=== PATIENT | male | born 1960 | race Caucasian/White ===

== ENCOUNTER 2017-05-07 15:15 | Outpatient (CLI) | payer MEDICARE, MEDICAID ==
[~2017-05-07 15:15] MED LIST: PANT-47 PO
== END 2017-05-07 23:59 | disposition home or self-care (01) ==
LOC: RAD 15:15
PROVIDERS: ATTEND Surgery
DX: R10.9 Unspecified abdominal pain (principal)
CPT/HCPCS: 76705

== ENCOUNTER 2024-10-01 11:05 | Emergency (ER) | payer MEDICAID, MEDICARE ==
[~2024-10-01] VITALS: Ht 182.9 cm; Wt 97.1 kg
[2024-10-01 11:06] VITALS: BP 134/77; PULSE 83; RESP 16; TEMP 98.3; O2SAT 97
--- NOTE | 2024-10-01 11:31 | Physician Documentation ---
History of Present Illness ~ Chief Complaint: Leg Laceration Stated Complaint: LEG LAC WITH CHAINSAW Time Seen by MD: 14:34 Primary Medical Doctor: sammy 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 Laceration is to the left lateral knee bleeding currently controlled patient denies any inability or significant difficulty with ambulation at this time. Tetanus Within 5 Years: No Medication Reconciliation Allergies: Coded Allergies: acetaminophen (Verified Allergy, Intermediate, "i GO OUT", 10/01/24) hydrocodone (Verified Allergy, Intermediate, "i GO OUT", 10/01/24) Scheduled Pantoprazole Sodium (PROTONIX tablet), 1 TAB PO DAILY Past Medical History Past Medical History: Hernia Past Surgical History: orthopedic surgeries Alcohol Use: Occasionally Drug Use: marijuana Lives with: Spouse Lives In: Home Occupation: employed Review of Systems Constitutional: Denies: chills, fever, weakness Eyes: Denies: pain, blurred vision ENT: Denies: ear pain, nose pain, throat pain, mouth pain Respiratory: Denies: cough, shortness of breath Cardiovascular: Denies: chest pain, palpitations Gastrointestinal: Denies: abdominal pain, nausea, vomiting Genitourinary: Denies: burning, dysuria Male Genitalia: Denies: penile discharge, testicular pain Neurological: Denies: headache, dizziness Musculoskeletal: Denies: pain, swelling Integumentary: Denies: rash, lesions Allergic/Immunologic: Denies: hives, itching Hematologic/Lymphatic: Denies: no symptoms reported Psychiatric: Denies: depression, anxiety Physical Exam Vital Signs: Temperature: 98.3, Source: Temporal, Heart Rate: 83, Respiratory Rate: 16, BP: 134/77, Pulse Oximetry: 97, Weight: 97.100 Oxygen Flow Rate: 0 Physical Exam General: Awake and Alert, no acute distress. HEENT: Conjunctiva pink, Sclera clear, Mucus Membranes moist. Neck: Supple without masses and tenderness. Resp: Unlabored. Lungs clear to auscultation bilaterally. Heart: Regular Rate and rhythm, normal S1 and S2 without murmur, rub or gallop. Musculoskeletal: Patient on exam does have 10 cm laceration to the left lateral knee. Patient is neurovascularly intact distally of the left lower extremity, motor function and strength are intact distally. Extremities: No cyanosis,clubbing or edema. Skin: Warm and Dry. Procedures Laceration/Wound Repair Laceration : Procedure Note Procedure note: 20 cc of 1% lidocaine without epinephrine was used to achieve local anesthesia of the 10 cm laceration to the left lateral knee. Patient tolerated well. Wound was irrigated with copious amounts of iodine and normal saline. Running suture with 4-0 Ethilon was used to achieve closure. Patient tolerated well. Bulky bandage applied to laceration repair site. Progress Results/Orders Results/Orders Completed Orders - LIZABETH SNYDER PAC Lidocaine 1% 30ml Vial (Xylocaine 1% Via (10/01/24 14:47) Lidocaine 1% W/Epi 1:100,000 (Xylocaine (10/01/24 14:54) Cephalexin Capsule (Keflex Capsule) (10/01/24 15:39) Vital Signs 10/01/24 11:06 Temp 98.3 Pulse 83 Resp 16 B/P (MAP) 134/77 Pulse Ox 97 O2 Flow Rate 0 EKG/XRAY/CT/US/VASC/MRI Bone/Soft Tissue X-Ray (Ext.) : Additional Comment X-ray of left knee interpreted by myself today shows no sign of acute fracture, bones in anatomic alignment, no osteolytic or blastic lesions. DIAGNOSTIC RADIOLOGY Patient: RADHA WAN Medical Record: [id number] 1960, Age: 64 Sex: Male Location: ER Patient Status: REG ER Service Date/Time: 10/01/241111 Ordering Physician: ZOYA HUTTON MD Exam: KNEE, COMP 4 VW MIN CLINICAL INDICATION: left KNEE PAIN and LACERATION TECHNIQUE: DI KNEE, COMP 4 VW MIN Comparison: None FINDINGS/IMPRESSION: : There is no evidence of acute fracture or dislocation. Soft tissues are unremarkable. 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 Laceration is to the left lateral knee bleeding currently controlled patient denies any inability or significant difficulty with ambulation at this time. Patient did have laceration repair via sutures of the left lateral knee done today by myself. Patient will follow up in 7-10 days with primary care or return to ED for suture removal. Patient will perform daily dressing changes and keep wound clean and dry. Return to ED with any worsening, concerning or changing symptoms. Patient was given prophylactic dose of Keflex in the ED today as well as prescription to [facility] of Keflex 500 mg t.i.d. for three days. Patient will return to ED with any worsening, concerning or changing symptoms. Departure Disposition: HOME / SELF CARE / HOMELESS Impression: Primary Impression: Laceration Condition: Improved Discharge Instructions: Laceration Care, Adult Additional Instructions: Patient did have laceration repair via sutures of the left lateral knee done today by myself. Patient will follow up in 7-10 days with primary care or return to ED for suture removal. Patient will perform daily dressing changes and keep wound clean and dry. Return to ED with any worsening, concerning or changing symptoms. Patient was given prophylactic dose of Keflex in the ED today as well as prescription to [facility] of Keflex 500 mg t.i.d. for three days. Patient will return to ED with any worsening, concerning or changing symptoms. Referrals: NO PRIMARY CARE PROVIDER (PCP) Prescriptions Cephalexin*Monohydrate* (Keflex*) 500 Mg Capsule 1 CAP PO Q8H for 3 Days, #9 CAP Prov: LIZABETH SNYDER PAC 10/01/24 Signature Scribe Signature: No scribe Attestation: No scribe JENIFFER AMES P[employer] RIDE OPERATOR Oct 01, 2024 11:31 LIZABETH SNYDER PAC Oct 01, 2024 14:46
--- NOTE | 2024-10-01 11:36 | RADIOLOGY REPORT ---
CLINICAL INDICATION: left KNEE PAIN and LACERATION TECHNIQUE: DI KNEE, COMP 4 VW MIN Comparison: None FINDINGS/IMPRESSION: : There is no evidence of acute fracture or dislocation. Soft tissues are unremarkable.
[2024-10-01] MEDS: LIDOcaine 1% W/epiNEPHrine 1:100,000 20ml vial SQ STA (15:09)
[2024-10-01] MEDS: LIDOcaine 1% 30ml preserv. free vial IJ STA (15:09)
[2024-10-01] MEDS ORDERED: CEPH-585 PO (15:46)
== END 2024-10-01 16:12 | disposition home or self-care (01) ==
LOC: ER 11:05
DX: S81.012A Laceration without foreign body, left knee, initial encounter (principal); Z88.5 Allergy status to narcotic agent; X58.XXXA Exposure to other specified factors, initial encounter; Y93.89 Activity, other specified; Y92.89 Other specified places as the place of occurrence of the external cause; Y99.8 Other external cause status
CPT/HCPCS: 12004; 73564; 99284; Z7610

== ENCOUNTER 2024-10-08 12:15 | Emergency (ER) | payer MEDICARE ==
[~2024-10-08] VITALS: Ht 182.9 cm; Wt 99.0 kg
[2024-10-08 12:26] VITALS: BP 134/68; PULSE 75; RESP 16; TEMP 97.8; O2SAT 99
--- NOTE | 2024-10-08 13:18 | Physician Documentation ---
History of Present Illness ~ Chief Complaint: Suture Removal Stated Complaint: STITCH REMOVAL Time Seen by MD: 13:17 Primary Medical Doctor: sammy [facility] HPI 64-year-old male presents to the ED after having sutures placed approximately week ago in his left knee lateral aspect. Denies any increased pain swelling drainage from the site Placed On: Oct 08, 2024 Tetanus Within 5 Years: No Medication Reconciliation Allergies: Coded Allergies: acetaminophen (Verified Allergy, Intermediate, "i GO OUT", 10/08/24) hydrocodone (Verified Allergy, Intermediate, "i GO OUT", 10/08/24) Scheduled Pantoprazole Sodium (PROTONIX tablet), 1 TAB PO DAILY Discontinued Medications Cephalexin*Monohydrate* (Keflex*), 1 CAP PO Q8H Discontinued Reason: Auto Discontinued Past Medical History Past Medical History: Hernia Past Surgical History: orthopedic surgeries Alcohol Use: Occasionally Drug Use: marijuana Lives with: Spouse Lives In: Home Occupation: employed Physical Exam Vital Signs: Temperature: 97.8, Heart Rate: 75, Respiratory Rate: 16, BP: 134/68, Pulse Oximetry: 99, Weight: 99.000 Oxygen Flow Rate: 0 Physical Exam General: Alert, no apparent distress. Extremities: Normal range of motion, no deformity. left knee large running stitch lateral aspect, no erythema , no drainage Neurologic: Oriented x4. Psychiatric: Normal mood and affect. Skin: Normal color, warm and dry. No edema, no ecchymosis. Progress Results/Orders Results/Orders Vital Signs 10/08/24 12:26 Temp 97.8 Pulse 75 Resp 16 B/P (MAP) 134/68 Pulse Ox 99 O2 Flow Rate 0 Medical Decision Making Findings Sutures removed by nursing staff without difficulty. The wound looks to be well approximated no signs of erythema or purulent discharge. I advised P the keep the area clean and dry at return for worseing symptoms Differential Dx:Considerations: Include: Cellulitis, Suture removal, Wound dehiscence Departure Disposition: 01 HOME / SELF CARE / HOMELESS Impression: Primary Impression: Laceration Condition: Stable Discharge Instructions: Suture Removal, Care After Referrals: NO PRIMARY CARE PROVIDER (PCP) Signature Scribe Signature: f Attestation: Scribed for Bassem Singer Manager Ethics by Bassem Hendrickson NP . 10/08/24 17:53 BASSEM SINGER NP Oct 08, 2024 13:18
== END 2024-10-08 13:30 | disposition home or self-care (01) ==
LOC: ER 12:15
DX: S81.012D Laceration without foreign body, left knee, subsequent encounter (principal); Z88.5 Allergy status to narcotic agent; X58.XXXD Exposure to other specified factors, subsequent encounter
CPT/HCPCS: 99281